=== PATIENT | female | born 1960 | race Caucasian/White ===

== ENCOUNTER 2020-10-17 10:39 | Outpatient (REF) | payer OTHER, SELFPAY ==
[2020-10-17 13:30] LABS: MANUAL DIFF FLAG NO
[2020-10-17 13:35] LABS: Basophils Percent Auto 0.4 % (0-2); Eosinophils Absolute Auto 0.2 X10*3/uL (0.0-0.4); Eosinophils Percent Auto 2.8 % (0-4); Hematocrit 43.8 % (37-47); Hemoglobin 14.1 g/dl (12.0-16.0); Imm Gran Abs Auto 0.03 X10*3/uL (0.00-0.03); Imm Gran Pct Auto 0.4 % (0.0-0.4); Lymphocytes Absolute Auto 1.8 X10*3/uL (1.2-4.9); Lymphocytes Percent Auto 21.2 % (20-40); Mean Corpuscular HGB Conc 32.2 g/dl (31.0-35.0); Mean Corpuscular Hemoglobin 29.9 pg (27.0-33.0); Mean Corpuscular Volume 92.8 fL (80-98); Monocytes Absolute Auto 0.5 X10*3/uL (0.1-1.2); Monocytes Percent Auto 6.1 % (2-11); Neutrophils Absolute Auto 5.9 X10*3/uL (2.0-8.3); Neutrophils Percent Auto 69.1 % (45-73); Platelet Count 235 X10*3/uL (160-400); Red Blood Count 4.72 X10*6/uL (4.20-5.50); Red Cell Distribution Width 12.9 % (11.0-16.0); White Blood Count 8.5 X10*3/uL (4.8-10.8)
[2020-10-17 13:55] LABS: Alanine Aminotransferase 22 U/L (0-31); Albumin Level 4.2 g/dL (3.5-5.0); Alkaline Phosphatase 93 U/L (39-117); Anion Gap 11 (12-20); Aspartate Amino Transferase 25 U/L (5-31); Bilirubin Total 0.4 mg/dL (0.0-1.0); Blood Urea Nitrogen 22 mg/dL (9-16); Calcium 8.6 mg/dL (8.4-10.2); Carbon Dioxide 29 mmol/L (22-29); Chloride 105 mmol/L (96-108); Cholesterol 202 mg/dL; Estimated Glomerular Filt Rate > 60; Glucose Fasting 89 mg/dL (60-99); HDL Cholesterol 75 mg/dL; LDL Cholesterol Calculated 115 mg/dl; Potassium 5.4 mmol/l (3.3-5.1); Sodium 140 mmol/L (135-145); Total Protein 6.6 g/dL (6.5-8.0); Triglycerides 64 mg/dL
[2020-10-17 14:18] LABS: TSH reflex Free T4 1.04 mIU/mL (0.32-4.0)
== END 2020-10-17 10:40 | disposition home or self-care (01) ==
LOC: HO.WFDLDS 10:39
PROVIDERS: Visit Provider Family Medicine
DX: Z12.31 Encounter for screening mammogram for malignant neoplasm of breast (principal)
CPT/HCPCS: 36415; 80053; 80061; 84443; 85025

== ENCOUNTER 2020-11-20 13:45 | Outpatient (REF) | payer OTHER, SELFPAY ==
--- NOTE | 2020-11-20 13:50 | MM_ITS ---
EXAMINATION: BONE DENSITOMETRY CLINICAL INDICATION: Encounter for screening for osteoporosis. COMPARISON: None (current study represents initial baseline exam). TECHNIQUE: Using a [employer] DXA System (software version: 13.1) manufactured by [employer], dual-energy x-ray absorptiometry was performed of the lumbar spine and left hip. The images are of good technical quality. Summary results are attached. FINDINGS: AP SPINE L1-L4: BMD 1.132 g/cm2, Z-score 0.7, T-score -0.4, normal. LEFT FEMUR, NECK: BMD 0.791 g/cm2, Z-score -0.6, T-score -1.8, osteopenia. LEFT FEMUR, TOTAL: BMD 0.903 g/cm2, Z-score 0.0, T-score -0.8, normal. IDENTIFIED RISK FACTORS: Menopause, history of fracture (adult). HISTORY OF FRACTURE: Left rib. MEDICATIONS: Calcium supplements or multivitamin. MM/XR DEXA appendicular skeleton IMPRESSION: 1. DIAGNOSIS: Osteopenia based on the lowest T-score value of -1.8 in the femoral neck applying World Health Organization criteria. 2. 10-YEAR FRACTURE RISK PREDICTION, FRAX: Major osteoporotic fracture (clinical spine, forearm, hip or shoulder) 15.7%. Hip fracture 1.8%. 3. Treatment Recommendations: NOF guidelines recommend consideration for treatment in postmenopausal women and men age 50 and older presenting with the following: -A hip or vertebral (clinical or morphometric) fracture. -T-score less than or equal to -2.5 at the femoral neck or spine after appropriate evaluation to exclude secondary causes. -Low bone mass at the hip or spine and a 10-year fracture probability by FRAX of greater than or equal to 3% for hip fracture or greater than or equal to 20% for major osteoporotic fracture based on the [place] adapted WHO algorithm. 4. Other Recommendations: All treatment decisions require clinical judgment and consideration of individual patient factors, including patient preferences, comorbidities, previous drug use, risk factors not captured in the FRAX model (e.g. frailty, falls, vitamin D deficiency, increased bone turnover, interval significant decline in bone density) and possible under or overestimation of fracture risk by FRAX. Additional medical evaluation for secondary cause of low bone mineral density may be appropriate. FUTURE SCAN RECOMMENDATION: People with diagnosed cases of osteoporosis or at high risk for fracture should have regular bone mineral density tests. For patients eligible for Medicare, routine testing is allowed once every 2 years. The testing frequency can be increased to one year for patients who have rapidly progressing disease, those who are receiving or discontinuing medical therapy to restore bone mass, or have additional risk factors.
== END 2020-11-20 13:46 | disposition home or self-care (01) ==
LOC: HO.MAMMO 13:45
PROVIDERS: PCP Family Medicine; Visit Provider Family Medicine
DX: Z13.820 Encounter for screening for osteoporosis (principal); M85.80 Other specified disorders of bone density and structure, unspecified site
CPT/HCPCS: 77081

== ENCOUNTER 2020-12-08 07:32 | Outpatient (REF) | payer OTHER, SELFPAY ==
--- NOTE | 2020-12-08 07:36 | MM_ITS ---
EXAMINATION: MM SCREENING DIGITAL BREAST TOMOSYNTHESIS, BILATERAL CLINICAL INFORMATION: Screening. Asymptomatic. The lifetime risk of breast cancer based on the Tyrer-Cuzick Model is 9%. COMPARISON: Outside mammography: 02/27/2018, 02/21/2016 ([facility], [place], [place]). TECHNIQUE: Digital breast tomosynthesis is performed in both the craniocaudal and mediolateral oblique views along with computer-aided detection (CAD). Synthesized 2D images are generated from the tomosynthesis. FINDINGS: There are scattered areas of fibroglandular density (ACR BI-RADS breast composition Category b). There are no significant masses, abnormal calcifications, or other abnormalities. No significant changes from prior outside exams. MM/MM tomosynthesis screening BI IMPRESSION: No mammographic evidence of malignancy. ASSESSMENT: BI-RADS 1: Negative RECOMMENDATION: Routine annual mammography screening. This patient's information was entered into a reminder system with a target due date for their next mammogram.
== END 2020-12-08 07:33 | disposition home or self-care (01) ==
LOC: HO.MAMMO 07:32
PROVIDERS: PCP Family Medicine; Visit Provider Family Medicine
DX: Z12.31 Encounter for screening mammogram for malignant neoplasm of breast (principal)
CPT/HCPCS: 77063; 77067

== ENCOUNTER → 2020-12-27 10:21 | Outpatient (BNVA) | payer OTHER, SELFPAY | PROVIDERS: PCP Family Medicine; Visit Provider Nurse Practitioner | DX: Z76.89 Persons encountering health services in other specified circumstances (principal) ==

== ENCOUNTER 2021-02-14 12:26 | Outpatient (REF) | payer OTHER, SELFPAY ==
[2021-02-14 13:25] LABS: MANUAL DIFF FLAG NO
[2021-02-14 13:27] LABS: Basophils Percent Auto 0.4 % (0-2); Eosinophils Absolute Auto 0.2 X10*3/uL (0.0-0.4); Hematocrit 44.2 % (37-47); Hemoglobin 14.2 g/dl (12.0-16.0); Imm Gran Abs Auto 0.03 X10*3/uL (0.00-0.03); Imm Gran Pct Auto 0.6 % (0.0-0.4); Lymphocytes Absolute Auto 1.5 X10*3/uL (1.2-4.9); Lymphocytes Percent Auto 27.2 % (20-40); Mean Corpuscular HGB Conc 32.1 g/dl (31.0-35.0); Mean Corpuscular Hemoglobin 28.2 pg (27.0-33.0); Mean Corpuscular Volume 87.7 fL (80-98); Mean Platelet Volume 10.1 fL (9.4-12.3); Monocytes Absolute Auto 0.4 X10*3/uL (0.1-1.2); Monocytes Percent Auto 7.4 % (2-11); Neutrophils Absolute Auto 3.3 X10*3/uL (2.0-8.3); Neutrophils Percent Auto 60.4 % (45-73); Platelet Count 225 X10*3/uL (160-400); Red Blood Count 5.04 X10*6/uL (4.20-5.50); Red Cell Distribution Width 14.2 % (11.0-16.0); White Blood Count 5.4 X10*3/uL (4.8-10.8)
[2021-02-14 14:24] LABS: Alanine Aminotransferase 18 U/L (0-31); Albumin Level 4.4 g/dL (3.5-5.0); Alkaline Phosphatase 94 U/L (39-117); Anion Gap 12 (12-20); Aspartate Amino Transferase 19 U/L (5-31); Bilirubin Total 0.6 mg/dL (0.0-1.0); Blood Urea Nitrogen 17 mg/dL (9-16); Carbon Dioxide 29 mmol/L (22-29); Chloride 105 mmol/L (96-108); Estimated Glomerular Filt Rate > 60; Glucose Random 82 mg/dL (60-115); Potassium 4.5 mmol/L (3.3-5.1); Sodium 141 mmol/L (135-145); Total Protein 6.9 g/dL (6.5-8.0)
[2021-02-14 14:31] LABS: TSH reflex Free T4 1.21 uIU/mL (0.32-4.0)
== END 2021-02-14 12:27 | disposition home or self-care (01) ==
LOC: HO.WFDLDS 12:26
PROVIDERS: Visit Provider Family Medicine
DX: Z00.00 Encounter for general adult medical examination without abnormal findings (principal); R53.83 Other fatigue
CPT/HCPCS: 36415; 80053; 84443; 85025

== ENCOUNTER → 2021-06-19 08:37 | Outpatient (BNVA) | payer OTHER, SELFPAY | PROVIDERS: PCP Family Medicine; Visit Provider Nurse Practitioner ==

== ENCOUNTER → 2021-09-17 08:31 | Outpatient (BNVA) | payer OTHER, SELFPAY | PROVIDERS: PCP Family Medicine; Visit Provider Nurse Practitioner ==

== ENCOUNTER 2022-03-11 07:52 | Outpatient (REF) | payer OTHER, SELFPAY ==
[2022-03-11 11:07] LABS: MANUAL DIFF FLAG NO
[2022-03-11 11:27] LABS: Basophils Percent Auto 0.4 % (0-2); Eosinophils Absolute Auto 0.2 X10*3/uL (0.0-0.4); Hematocrit 44.6 % (37.0-47.0); Hemoglobin 14.3 g/dl (12.0-16.0); Imm Gran Abs Auto 0.02 X10*3/uL (0.00-0.03); Imm Gran Pct Auto 0.4 % (0.0-0.4); Lymphocytes Absolute Auto 2.5 X10*3/uL (1.2-4.9); Lymphocytes Percent Auto 49.4 % (20-40); Mean Corpuscular HGB Conc 32.1 g/dl (31.0-35.0); Mean Corpuscular Hemoglobin 28.5 pg (27.0-33.0); Mean Corpuscular Volume 88.8 fL (80.0-98.0); Mean Platelet Volume 9.8 fL (9.4-12.3); Monocytes Absolute Auto 0.4 X10*3/uL (0.1-1.2); Monocytes Percent Auto 7.9 % (2-11); Neutrophils Absolute Auto 1.9 x10*3/uL (2.0-8.3); Neutrophils Percent Auto 37.9 % (45-73); Platelet Count 194 X10*3/uL (160-400); Red Blood Count 5.02 X10*6/uL (4.20-5.50); Red Cell Distribution Width 13.4 % (11.0-16.0); White Blood Count 5.1 X10*3/uL (4.8-10.8)
[2022-03-11 11:47] LABS: Alanine Aminotransferase 34 U/L (0-31); Albumin Level 4.1 g/dL (3.5-5.0); Alkaline Phosphatase 92 U/L (39-117); Anion Gap 12 (12-20); Aspartate Amino Transferase 26 U/L (5-31); Bilirubin Total 0.4 mg/dL (0.0-1.0); Blood Urea Nitrogen 17 mg/dL (9-16); Calcium 9.6 mg/dL (8.4-10.2); Carbon Dioxide 29 mmol/L (22-29); Chloride 106 mmol/L (96-108); Estimated Glomerular Filt Rate 60; Glucose Fasting 93 mg/dL (60-99); Potassium 4.3 mmol/L (3.3-5.1); Sodium 143 mmol/L (135-145); Total Protein 6.7 g/dL (6.5-8.0)
[2022-03-11 11:52] LABS: TSH reflex Free T4 2.95 uIU/mL (0.32-4.0); Vitamin D 25-OH Total 21.3 ng/mL (>30)
[2022-03-11 12:16] LABS: Folate 6.7 ng/mL (> or = 4.0); Vitamin B12 371 pg/mL (200-900)
[2022-03-11 14:01] LABS: Appearance Urine CLEAR; Color Urine YELLOW; Glucose Urine UA NEG (NEG); Leukocyte Esterase Urine NEG (NEG); Nitrite Urine NEG (NEG); PH 5.5 (5.0-8.0); Specific Gravity - Urine <= 1.005 (1.005-1.025); Urine Blood NEG (NEG); Urine Ketones NEG (NEG); Urine Protein NEG (NEG-TRACE)
== END 2022-03-11 07:53 | disposition home or self-care (01) ==
LOC: HO.WFDLDS 07:52
PROVIDERS: Visit Provider Family Medicine
DX: Z00.00 Encounter for general adult medical examination without abnormal findings (principal); K21.00 Gastro-esophageal reflux disease with esophagitis, without bleeding; M85.80 Other specified disorders of bone density and structure, unspecified site; E55.9 Vitamin D deficiency, unspecified; E53.8 Deficiency of other specified B group vitamins; Z87.19 Personal history of other diseases of the digestive system
CPT/HCPCS: 36415; 80053; 81003; 82306; 82607; 82746; 84443; 85025

== ENCOUNTER 2022-03-19 14:39 | Outpatient (REF) | payer OTHER, SELFPAY ==
--- NOTE | ~2022-03-19 | MM_ITS ---
EXAMINATION: MM SCREENING DIGITAL BREAST TOMOSYNTHESIS, BILATERAL CLINICAL INFORMATION: Screening. Asymptomatic. The lifetime risk of breast cancer based on the Tyrer-Cuzick Model is 12%. COMPARISON: Mammography: 12/08/2020; outside mammography 02/27/2018 and 02/26/2017 ([facility], [place], [place]). TECHNIQUE: Digital breast tomosynthesis is performed in both the craniocaudal and mediolateral oblique views along with computer-aided detection (CAD). Synthesized 2D images are generated from the tomosynthesis. FINDINGS: There are scattered areas of fibroglandular density (ACR BI-RADS breast composition Category b). Parenchymal pattern is similar to prior studies. No developing density or architectural abnormality. There are no significant masses, abnormal calcifications, or other abnormalities. Skin contours are smooth. MM/MM tomosynthesis screening BI IMPRESSION: No mammographic evidence of malignancy. ASSESSMENT: BI-RADS 1: Negative RECOMMENDATION: Routine annual mammography screening. This patient's information was entered into a reminder system with a target due date for their next mammogram.
== END 2022-03-19 14:40 | disposition home or self-care (01) ==
LOC: HO.MAMMO 14:39
PROVIDERS: PCP Family Medicine; Visit Provider Family Medicine
DX: Z12.31 Encounter for screening mammogram for malignant neoplasm of breast (principal)
CPT/HCPCS: 77063; 77067

== ENCOUNTER 2022-05-21 15:01 | Outpatient (REF) | payer OTHER, SELFPAY ==
[2022-05-21 18:48] LABS: CT PCR NOT DETECTED (Not Detect.); NG PCR NOT DETECTED (Not Detect.)
[2022-05-22 09:16] LABS: BV Int Neg Control Negative (Negative); BV Int Pos Control Positive (Positive)
[2022-05-24 09:27] LABS: HPV mRNA E6/E7 rflx Not Detected (Not Detected)
== END 2022-05-21 15:02 | disposition home or self-care (01) ==
LOC: HO.LAB 15:01
PROVIDERS: Visit Provider Advanced Practice Midwife
DX: Z01.419 Encounter for gynecological examination (general) (routine) without abnormal findings (principal); N89.8 Other specified noninflammatory disorders of vagina; Z11.3 Encounter for screening for infections with a predominantly sexual mode of transmission; Z11.51 Encounter for screening for human papillomavirus (HPV); Z11.8 Encounter for screening for other infectious and parasitic diseases
CPT/HCPCS: 87480; 87491; 87510; 87591; 87624; 87660; 88142

== ENCOUNTER 2022-05-22 14:55 | Outpatient (REF) | payer OTHER, SELFPAY ==
[2022-05-23 11:43] LABS: Influenza A PCR NEGATIVE (Negative); Influenza B PCR NEGATIVE (Negative); Resp Syncy Virus RNA Qual PCR NEGATIVE (Negative); SARS COV2 PCR INHOUSE POSITIVE (Negative)
== END 2022-05-22 14:56 | disposition home or self-care (01) ==
LOC: HO.LNP 14:55
PROVIDERS: Visit Provider Family Medicine
DX: Z20.822 Contact with and (suspected) exposure to COVID-19 (principal); B34.9 Viral infection, unspecified
CPT/HCPCS: 0241U

== ENCOUNTER 2022-08-14 12:36 | Outpatient (REF) | payer OTHER, SELFPAY ==
[2022-08-14 13:35] LABS: MANUAL DIFF FLAG NO
[2022-08-14 13:39] LABS: Eosinophils Absolute Auto 0.1 X10*3/uL (0.0-0.4); Eosinophils Percent Auto 2.4 % (0-4); Hematocrit 43.7 % (37.0-47.0); Imm Gran Abs Auto 0.01 X10*3/uL (0.00-0.03); Imm Gran Pct Auto 0.2 % (0.0-0.4); Lymphocytes Absolute Auto 1.5 X10*3/uL (1.2-4.9); Lymphocytes Percent Auto 37.4 % (20-40); Mean Corpuscular Hemoglobin 27.6 pg (27.0-33.0); Mean Platelet Volume 9.8 fL (9.4-12.3); Monocytes Absolute Auto 0.4 X10*3/uL (0.1-1.2); Monocytes Percent Auto 9.2 % (2-11); Neutrophils Absolute Auto 2.1 x10*3/uL (2.0-8.3); Neutrophils Percent Auto 49.8 % (45-73); Platelet Count 214 X10*3/uL (160-400); Red Blood Count 5.08 X10*6/uL (4.20-5.50); Red Cell Distribution Width 14.2 % (11.0-16.0); White Blood Count 4.1 X10*3/uL (4.8-10.8)
[2022-08-14 15:05] LABS: Alanine Aminotransferase 13 U/L (0-31); Albumin Level 4.2 g/dL (3.5-5.0); Alkaline Phosphatase 81 U/L (39-117); Anion Gap 13 (12-20); Aspartate Amino Transferase 15 U/L (5-31); Bilirubin Total 0.3 mg/dL (0.0-1.0); Blood Urea Nitrogen 8 mg/dL (9-16); Calcium 9.1 mg/dL (8.4-10.2); Carbon Dioxide 28 mmol/L (22-29); Chloride 106 mmol/L (96-108); Cholesterol 207 mg/dL; Estimated Glomerular Filt Rate > 60; Glucose Random 88 mg/dL (60-115); HDL Cholesterol 47 mg/dL; LDL Cholesterol Calculated 139 mg/dl; Potassium 3.9 mmol/L (3.3-5.1); Sodium 143 mmol/L (135-145); Total Protein 6.6 g/dL (6.5-8.0); Triglycerides 109 mg/dL
[2022-08-14 15:18] LABS: TSH reflex Free T4 0.94 uIU/mL (0.32-4.0); Vitamin D 25-OH Total 41.3 ng/mL (>30)
[2022-08-16 05:42] LABS: LDL Cholesterol Direct 127 mg/dL (<100)
== END 2022-08-14 12:37 | disposition home or self-care (01) ==
LOC: HO.WFDLDS 12:36
PROVIDERS: Visit Provider Family Medicine
DX: Z00.00 Encounter for general adult medical examination without abnormal findings (principal); F32.9 Major depressive disorder, single episode, unspecified; E55.9 Vitamin D deficiency, unspecified
CPT/HCPCS: 36415; 80053; 80061; 82306; 83721; 84443; 85025

== ENCOUNTER → 2023-02-21 11:15 | Outpatient (BNVA) | payer OTHER, SELFPAY | PROVIDERS: PCP Family Medicine; Visit Provider Nurse Practitioner | DX: Z13.89 Encounter for screening for other disorder (principal) ==

== ENCOUNTER 2023-03-12 10:19 | Outpatient (REF) | payer OTHER, SELFPAY ==
[2023-03-12 14:05] LABS: MANUAL DIFF FLAG NO
[2023-03-12 14:25] LABS: Basophils Percent Auto 0.4 % (0-2); Eosinophils Absolute Auto 0.1 X10*3/uL (0.0-0.4); Eosinophils Percent Auto 2.2 % (0-4); Hematocrit 45.7 % (37.0-47.0); Hemoglobin 14.8 g/dl (12.0-16.0); Imm Gran Abs Auto 0.05 X10*3/uL (0.00-0.03); Lymphocytes Percent Auto 39.3 % (20-40); Mean Corpuscular HGB Conc 32.4 g/dl (31.0-35.0); Mean Corpuscular Hemoglobin 27.8 pg (27.0-33.0); Mean Corpuscular Volume 85.7 fL (80.0-98.0); Mean Platelet Volume 10.2 fL (9.4-12.3); Monocytes Absolute Auto 0.4 X10*3/uL (0.1-1.2); Monocytes Percent Auto 8.4 % (2-11); Neutrophils Absolute Auto 2.4 x10*3/uL (2.0-8.3); Neutrophils Percent Auto 48.7 % (45-73); Platelet Count 242 X10*3/uL (160-400); Red Blood Count 5.33 X10*6/uL (4.20-5.50); Red Cell Distribution Width 14.5 % (11.0-16.0)
[2023-03-12 15:11] LABS: Alanine Aminotransferase 15 U/L (0-31); Albumin Level 4.2 g/dL (3.5-5.0); Alkaline Phosphatase 89 U/L (39-117); Anion Gap 11 (12-20); Aspartate Amino Transferase 16 U/L (5-31); Bilirubin Total 0.5 mg/dL (0.0-1.0); Blood Urea Nitrogen 17 mg/dL (9-16); Calcium 9.1 mg/dL (8.4-10.2); Carbon Dioxide 27 mmol/L (22-29); Chloride 109 mmol/L (96-108); Cholesterol 219 mg/dL; Estimated Glomerular Filt Rate > 60; Glucose Fasting 94 mg/dL (60-99); HDL Cholesterol 56 mg/dL; LDL Cholesterol Calculated 146 mg/dl; Potassium 4.2 mmol/L (3.3-5.1); Sodium 143 mmol/L (135-145); Total Protein 6.5 g/dL (6.5-8.0); Triglycerides 86 mg/dL
[2023-03-12 15:29] LABS: TSH reflex Free T4 1.52 uIU/mL (0.32-4.0)
== END 2023-03-12 10:20 | disposition home or self-care (01) ==
LOC: HO.WFDLDS 10:19
PROVIDERS: Visit Provider Family Medicine
DX: Z00.00 Encounter for general adult medical examination without abnormal findings (principal)
CPT/HCPCS: 36415; 80053; 80061; 84443; 85025

== ENCOUNTER 2023-03-25 14:09 | Outpatient (REF) | payer OTHER, SELFPAY ==
--- NOTE | ~2023-03-25 | MM_ITS ---
EXAMINATION: MM SCREENING DIGITAL BREAST TOMOSYNTHESIS, BILATERAL CLINICAL INFORMATION: Screening. Asymptomatic. Excisional biopsy with benign results breast. COMPARISON: Mammography: March 19, 2022 and studies dating back to February 21, 2016 The lifetime risk of breast cancer based on the Tyrer-Cuzick Model is 8.2%. TECHNIQUE: Digital breast tomosynthesis is performed in both the craniocaudal and mediolateral oblique views along with computer-aided detection (CAD). Synthesized 2D images are generated from the tomosynthesis. FINDINGS: There are scattered areas of fibroglandular density (ACR BI-RADS breast composition Category b). There are no significant masses, abnormal calcifications, or other abnormalities. MM/MM tomosynthesis screening BI IMPRESSION: No significant changes ASSESSMENT: BI-RADS 1: Negative RECOMMENDATION: Routine annual mammography screening. This patient's information was entered into a reminder system with a target due date for their next mammogram.
== END 2023-03-25 14:10 | disposition home or self-care (01) ==
LOC: HO.MAMMO 14:09
PROVIDERS: PCP Family Medicine; Visit Provider Family Medicine
DX: Z12.31 Encounter for screening mammogram for malignant neoplasm of breast (principal)
CPT/HCPCS: 77063; 77067

== ENCOUNTER 2023-06-11 08:54 | Outpatient (REF) | payer OTHER, SELFPAY ==
[2023-06-11 12:06] LABS: Erythrocyte Sedimentation Rate 4 MM/HR (0-20)
[2023-06-11 12:23] LABS: Alanine Aminotransferase 13 U/L (0-31); Albumin Level 4.1 g/dL (3.5-5.0); Alkaline Phosphatase 78 U/L (39-117); Anion Gap 14 (12-20); Aspartate Amino Transferase 16 U/L (5-31); Bilirubin Total 0.6 mg/dL (0.0-1.0); Blood Urea Nitrogen 9 mg/dL (9-16); Calcium 9.7 mg/dL (8.4-10.2); Carbon Dioxide 27 mmol/L (22-29); Chloride 105 mmol/L (96-108); Estimated Glomerular Filt Rate 58; Glucose Random 93 mg/dL (60-115); Iron 96 mcg/dL (30-160); Percent Iron Saturation 31 % (15-50); Potassium 4.2 mmol/L (3.3-5.1); Sodium 142 mmol/L (135-145); Total Iron Binding Capacity 305 mcg/dL (228-428); Total Protein 6.8 g/dL (6.5-8.0); Unsaturated Iron Binding 209 ug/dL
[2023-06-11 12:51] LABS: Rheumatoid Factor < 13.0 IU/mL (<15.0)
[2023-06-11 12:56] LABS: Folate 8.2 ng/mL (> or = 4.0); Vitamin B12 > 2000 pg/mL (200-900)
[2023-06-16 15:54] LABS: CRP High Sensitivity 0.5 mg/L
== END 2023-06-11 08:55 | disposition home or self-care (01) ==
LOC: HO.WFDLDS 08:54
PROVIDERS: Visit Provider Family Medicine
DX: K11.7 Disturbances of salivary secretion (principal); E53.8 Deficiency of other specified B group vitamins
CPT/HCPCS: 36415; 80053; 82607; 82746; 83540; 85652; 86141; 86431

== ENCOUNTER 2023-06-12 11:19 | Outpatient (AMB) | payer OTHER, SELFPAY ==
[2023-06-12 11:41] VITALS: BP 122/72; PULSE 91; O2SAT 97; BMI 28.4
--- NOTE | 2023-06-12 11:41 | A.OFFPC_ITS ---
Vital Signs 06/12/23 11:41 Height 5 ft 6 in Weight 176 lb BMI 28.4 BP 122/72 Blood Pressure Location Lt brachial Position Sitting Pulse 91 Pulse Source Pulse Oximeter Pulse Oximetry (%) 97 Oxygen Delivery Method Room Air Intake Visit Reasons: Follow-up anxiety Intake Note: Patient is here for follow up on anxiety, and would like to discuss some appointments. Allergies No Known Allergies Allergy (Verified 06/12/23 11:44) Tobacco use date assessed: 06/12/23 Dental Screening Dental Screen Date: 06/12/23 Did you have a dental visit in the last 12 months?: Yes Did you have a dental problem in the last 6 months where you did not have access to dental care?: No Was dental information given to patient?: No HPI Follow-up anxiety HPI Details 62 y/o female presents to f/u anxiety. She is on lorazepam 1mg t.i.d., lamotrigine 50mg b.i.d., benztropine 0.5mg b.i.d. and hydroxyzine 50mg p.r.n. She states she has good family support. She continues to take pantoprazole 40mg b.i.d. She reports tongue has improved with her mouth wash but is still having issues. She has a hx of GERD. 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) Current occupational exposures/hazards: No Cognitive needs: No Hearing needs: No Vision needs: Yes (glasses) Questionnaire Thrive Questionnaire Date Thrive assessed: 09/17/21 RENETTA-7 AMB Questionnaire RENETTA-7 Date RENETTA - 7 assessed: 06/12/23 Feeling nervous, anxious, or on edge: 0 = Not at all Not being able to stop or control worryin = Not at all Worrying too much about different things: 0 = Not at all Trouble relaxin = Several days Being so restless that it is hard to sit still: 0 = Not at all Becoming easily annoyed or irritable: 1 = Several days Feeling afraid as if something awful might happen: 0 = Not at all Total RENETTA-7 score (0-4 normal; 5-9 mild; 10-14 moderate; 15-21 severe): 2 Source: Developed by Drs. Kevin Zarate, Massiel Lizama, Gee Veronica and colleagues, with an educational ember from [employer]. Physical exam (Primary Care) Vital Signs: Last Vital Signs Pulse 91 06/12/23 11:41 BP 122/72 06/12/23 11:41 Pulse Ox 97 06/12/23 11:41 Oxygen Delivery Method Room Air 06/12/23 11:41 BMI result Body Mass Index 28.4 Tobacco/Smoking Status: Tobacco use Status Tobacco use date assessed 06/12/23 06/12/23 11:52 Patient Tobacco Use Status Never used Tobacco 06/12/23 11:43 e-Cigarette/Vaping Use Never Used 06/12/23 11:43 Thrive Assessment: Date of Thrive Assessment Date Thrive assessed 09/17/21 06/12/23 11:43 Assessment and Plan Assessment & Plan (1) Anxiety with depression: Code(s): F41.8 - Other specified anxiety disorders Plan: Acute adjustment disorder on top of bipolar disorder with anxiety and depression; patient's mother just recently . She seems fairly stable considering this at new situation. She has a therapist and a psych med provider and feels that she can speak to her therapist as well as family supports. She notes that she has a very strong family relationship with her sisters. No medication changes today (2) Difficulty swallowing: Code(s): R13.10 - Dysphagia, unspecified Plan: Some difficulty swallowing. At prior visit she appeared to have aphthous ulcers and potential thrush Had given her a miracle mouthwash. She says this helped considerably but that it may not have been for a long enough period of time. Will repeat this medication However, I think some of her symptoms are secondary to GERD and she is followed for GERD and history of Velázquez's esophagus by Heather Jack. Follow-up with Heather Jack at upcoming appointment but call for sooner appointment if symptoms are worsening (3) Aphthous ulcer of tongue: Code(s): K12.0 - Recurrent oral aphthae Plan: This appears resolved (4) GERD with esophagitis: Code(s): K21.00 - Gastro-esophageal reflux disease with esophagitis, without bleeding Plan: As above, follow-up with GI Continue pantoprazole Avoid triggers Medications: Refilled Miracle Mouthwash-Flores Nystatin susp 80 mL;Lidocaine 2% Visc 80 mL; Maalox 80 mL; Swish and spit 5 mL PO BID 10 days 240 mL 0RF pantoprazole 40 mg PO BID 60 tabs 6RF K21.00 - Gastro-esophageal reflux disease with esophagitis, without bleeding, Z87.19 - Personal history of other diseases of the digestive system Coding Level of Care Code Est Pt Level 4 (88136) Diagnoses Anxiety with depression F41.8 Difficulty swallowing R13.10 Aphthous ulcer of tongue K12.0 GERD with esophagitis K21.00
== END 2023-06-12 13:13 | disposition home or self-care (01) ==
PROVIDERS: Visit Provider Family Medicine
DX: F41.8 Other specified anxiety disorders (principal); R13.10 Dysphagia, unspecified; K12.0 Recurrent oral aphthae; K21.00 Gastro-esophageal reflux disease with esophagitis, without bleeding
CPT/HCPCS: 99214

== ENCOUNTER 2023-08-14 10:44 | Outpatient (AMB) | payer OTHER, SELFPAY ==
[2023-08-14 10:47] VITALS: BP 126/74; PULSE 93; RESP 12; TEMP 36.3; O2SAT 98; BMI 28.9
--- NOTE | 2023-08-14 10:47 | A.OFFPC_ITS ---
Vital Signs 08/14/23 10:47 Height 5 ft 6 in Weight 179 lb 4 oz BMI 28.9 BP 126/74 Blood Pressure Location Lt brachial Position Sitting Respiration 12 Pulse 93 Pulse Source Pulse Oximeter Temp 97.3 F Temp Source Temporal Artery Scan Pulse Oximetry (%) 98 Oxygen Delivery Method Room Air Intake Visit Reasons: f/u anxiety/depression and chronic conditions Spreading Machine Operator Required: No Accompanied by: Self / Same As Patient Allergies No Known Allergies Allergy (Verified 08/14/23 10:56) Medication List - Last Reconciled 08/14/23 by Nelson Walsh MD benztropine 0.5 mg PO BEDTIME Bifidobacterium infantis (Align) 4 mg PO DAILY 30 days bisacodyl 5 mg PO BEDTIME diclofenac sodium 1% 4 grams topical QID 14 days docusate sodium 100 mg PO BID famotidine 40 mg PO BEDTIME 30 days hydroxyzine pamoate 50 mg PO BID PRN ibuprofen 400 mg (2 x 200 mg) PO Q8H 30 days lamotrigine 50 mg PO BID lorazepam 1 mg PO TID mecobalamin (vitamin B12) 1,000 mcg sublingual DAILY 30 days Miracle Mouthwash-Flores 5 mL PO BID 10 days pantoprazole 40 mg PO BID perphenazine 4 mg PO DAILY polyethylene glycol 3350 17 grams PO DAILY Tobacco use date assessed: 06/12/23 Fall risk assessment: No Falls in past year Last assessed Fall Risk: 08/14/23 Dental Screening Dental Screen Date: 08/14/23 Did you have a dental visit in the last 12 months?: Yes Did you have a dental problem in the last 6 months where you did not have access to dental care?: No Was dental information given to patient?: Patient has dentist HPI f/u anxiety/depression and chronic conditions HPI Details 63 y/o female presents to f/u anxiety/de pression and chronic conditions. She is on lorazepam 1mg t.i.d., lamotrigine 50mg b.i.d.. and hydroxyzine 50mg p.r.n. She is also on benztropine 0.5mg. Pt scores negative for anxiety/depression today though she reports she has things she would rather not talk about. While discussing the of her mother pt had difficulty holding back tears. She reports she no longer has a therapist. [facility] Medical History Squamous cell carcinoma of skin of right calf Surgical History H/O esophagogastroduodenoscopy H/O colonoscopy History of lumpectomy of left breast Family History Mother Uterine cancer Stented coronary artery Sister Melanoma Social History Household Members: Children [facility]: 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 1. Little interest or pleasure in doing things: not at all 2. Feeling down, depressed, or hopeless: not at all 3. Trouble falling or staying asleep, or sleeping too much: not at all 4. Feeling tired or having little energy: not at all 5. Poor appetite or overeating: not at all 6. Feeling bad about yourself - or that you are a failure or have let yourself or your family down: not at all 7. Trouble concentrating on things, such as reading the newspaper or watching television: not at all 8. Moving or speaking so slowly that other people could have noticed. Or the opposite - being so fidgety or restless that you have been moving around a lot more than usual: not at all 9. Thoughts that you would be better off or of hurting yourself in some way: not at all Total score: 0 Depression Screening Interpretation: Negative Source: Developed by Drs. Kevin Zarate, Massiel Lizama, Gee Veronica and colleagues, with an educational ember from [email or web address]. Thrive Questionnaire Date Thrive assessed: 09/17/21 RENETTA-7 AMB Questionnaire RENETTA-7 Date RENETTA - 7 assessed: 06/12/23 Feeling nervous, anxious, or on edge: 0 = Not at all Not being able to stop or control worryin = Not at all Worrying too much about different things: 0 = Not at all Trouble relaxin = Not at all Being so restless that it is hard to sit still: 0 = Not at all Becoming easily annoyed or irritable: 0 = Not at all Feeling afraid as if something awful might happen: 0 = Not at all Total RENETTA-7 score (0-4 normal; 5-9 mild; 10-14 moderate; 15-21 severe): 0 Source: Developed by Drs. Kevin Zarate, Massiel Lizama, Gee Veronica and colleagues, with an educational ember from [email or web address]. RENETTA-7 Assessment Billing RENETTA-7 Assessment Tool: RENETTA-7 Assessment 47818 Review of Systems Psych Reports anxiety and Reports depression Physical exam (Primary Care) Vital Signs: Last Vital Signs Temp 97.3 F 08/14/23 10:47 Pulse 93 08/14/23 10:47 Resp 12 08/14/23 10:47 BP 126/74 08/14/23 10:47 Pulse Ox 98 08/14/23 10:47 Oxygen Delivery Method Room Air 08/14/23 10:47 BMI result Body Mass Index 28.9 Tobacco/Smoking Status: Tobacco use Status Tobacco use date assessed 06/12/23 08/14/23 10:47 Patient Tobacco Use Status Never used Tobacco 08/14/23 10:47 e-Cigarette/Vaping Use Never Used 08/14/23 10:47 PHQ-9: PHQ-9 Score PHQ-9: Total score 0 08/14/23 11:39 Depression Screening Interpretation: Negative Thrive Assessment: Date of Thrive Assessment Date Thrive assessed 09/17/21 08/14/23 10:47 Assessment and Plan Assessment & Plan (1) Anxiety with depression: Code(s): F41.8 - Other specified anxiety disorders Plan: Patient with history of bipolar disorder and severe anxiety and depression. Recent of her mother and while discussing this, patient has difficulty holding back tears and says I can not talk about that . PHQ-9 and renetta 7 were scored negative and I discussed this with her; these clearly do not reflect her actual mood and she acknowledges that although she looks on the bright side as much as she can and this is a good coping strategy, she has many emotions that she does not feel she can convey or talk about. She has a psychiatrist who manages her medications and she seems fairly stable on these. She has a bilingual social worker. However, she had a therapist and the [facility] has told her they are ?cutting back? and I strongly disagree with this action with regards to Laurie. She does not advocate for herself well and may except that they are cutting back and discontinuing her care but she has significant anxiety and depression nevertheless. Spoke to the nurse navigator today with the above and I have requested that he advocate for her to continue therapy. No medication changes Continue with psychiatrist and bilingual social worker Strongly advise she continue with therapist (2) Bipolar disorder: Code(s): F31.9 - Bipolar disorder, unspecified Plan: Continue with psychiatrist and continue current medication regimen Coding Level of Care Code Est Pt Level 3 (07754) Diagnoses Anxiety with depression F41.8 Bipolar disorder F31.9 Additional Codes RENETTA-7 Assessment Billing - RENETTA-7 Assessment Tool: RENETTA-7 Assessment [id number] ([id number])
== END 2023-08-14 12:08 | disposition home or self-care (01) ==
PROVIDERS: PCP Family Medicine; Visit Provider Family Medicine
DX: F41.8 Other specified anxiety disorders (principal); F31.9 Bipolar disorder, unspecified
CPT/HCPCS: 99213

== ENCOUNTER 2023-08-15 11:28 | Outpatient (AMB) | payer OTHER, SELFPAY ==
--- NOTE | 2023-08-15 11:29 | MHC.OFFVIS ---
Intake Vital Signs 08/15/23 11:31 Height 5 ft 6 in Weight 178 lb 9.191 oz BMI 28.8 BP 115/71 Blood Pressure Location Lt brachial Position Sitting Pulse 95 Intake Visit Reasons: 6month f/u Intake Note: Patient presents to in office visit today in 6 months in follow up. CC: Patient reports she is doing well and she is trying to eat well and taking Protonix and Famotidine. She reports medications are working well to manage symptoms. She reports she gets laryngitis once in a while . 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 She feels her GERD is well controlled on the protonix bid, but we will continue famotidine qhs until we can survey the SSBE. She feels that the Miralax is moving her bowels well with the colace bid, and they have bisacodyl prn for this in her respite. She is still very emotional regarding a problem when she woke up and could not speak with a past EGD. This happened a different facility and she has been resistant to having his request the records to find out what sedation she might have reacted poorly to. However, she is agreeable to getting the procedure scheduled since we are >8 mos out for this. She was worried that she would miss her sons graduation in March. Again, she had a problem waking up from anesthesia in the past of unknown type after procedure not being able to speak which triggered her PTSD. There are no cardiac or respiratory problems. There are no infectious disease problems. Again she has a history of Velázquez's esophagus but has not been surveyed in at least 5 years. RoV 6 mos. (2) History of Velázquez's esophagus: Code(s): Z87.19 - Personal history of other diseases of the digestive system (3) Constipation: Code(s): K59.00 - Constipation, unspecified Medications: New docusate sodium 100 mg PO BID 60 caps 6RF Refilled pantoprazole 40 mg PO BID 60 t abs 6RF K21.00 - Gastro-es ophageal reflux di sease with esophag itis, without blee xander, Z87.19 - Per mona history of o ther diseases of t he digestive syste m famotidine 40 mg PO BEDTIME 30 days 30 tabs 3R F polyethylene glyco l 3350 17 grams PO DAILY 238 grams 6RF EGD Not scheduled or obtained?? BIOPSY Laboratory Tests 03/12/23 06/11/23 06/11/23 10:25 09:08 09:08 Estimated GFR 58 Total Bilirubin 0.6 AST 16 ALT 13 Alkaline Phosphata se 78 TSH 1.52 ROV TODAY'S VISIT She never heard to schedule the EGD. She is having troubles with recurrent sore throats and hoarse voice. She does not feel this is her GERD, but sinus problems. She has not had survey for SSBE for many years. Her mother 2 mos ago, this was hard for her. She is associated with [facility] and has an apt with them, she brings a med list for me to update, but they left off lamictal. She wanted Cologuard for CRC screening, this was supposed to be discussed wtih her PCP, but I will try ordering it since she saw him yesterday and it was not addressed. She has no hx of polyps or FHX of CRC. There are no cardiac or respiratory problems. There are no infectious disease problems. Again she has a history of Velázquez's esophagus but has not been surveyed in at least 5 years. ROV 6 mos. 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) Current occupational exposures/hazards: No Cognitive needs: No Hearing needs: No Vision needs: Yes (glasses) Review of Systems Const Denies fatigue, Denies fever(s), Denies night sweats, Denies poor appetite and Denies weight loss Eyes Details: glasses Reports requires corrective lenses ENT Reports Normal hearing present, Denies dental pain, Denies dysphagia, Denies hearing loss, Denies mouth pain, Denies odynophagia, Reports post nasal drip, Reports sinus pressure, Reports sore throat, Denies throat swelling, Denies tongue swelling and Reports other (Dentition adequate) Card Reports no additional complaints Resp Reports no additional complaints GI Denies abdominal pain, Denies melena, Denies bloating, Denies hematochezia, Reports constipation, Denies GI cramping, Denies dysphagia, Denies excessive flatus, Denies early satiety, Reports heartburn, Denies diarrhea, Denies nausea, Denies odynophagia, Denies vomiting and Denies hematemesis Skin/Breast Denies pruritus, Denies lesions, Denies rash and Denies jaundice Neuro Reports Normal hearing present and Denies Abnormal speech present Psych Reports anxiety and Reports depression Endo Denies fatigue Aller/Immun Denies throat swelling and Denies tongue swelling Physical Exam Vital Signs: Last Vital Signs Pulse 95 08/15/23 11:31 BP 115/71 08/15/23 11:31 BMI result Body Mass Index 28.8 Const General: cooperative, no acute distress, well developed and well groomed Nutritional Appearance: average body habitus and well nourished Orientation/consciousness: oriented to person, oriented to place and oriented to time Limitations: No language barrier HEENT Head: Yes normocephalic and Yes atraumatic Eyes General: appearance normal, both eyes and all related structures Pupils: Equal, round and reactive pupils present Neck Neck: Yes normal visual inspection and Yes no lymphadenopathy Thyroid: Thyroid normal Resp Effort & Inspection: normal respiratory effort and able to speak in complete sentences Auscultation: clear to auscultation bilaterally Cardio Rate: regular rate Rhythm: regular rhythm Heart sounds: Normal, physiologic split S2 sound present Peripheral pulses: radial pulses present and posterior tibial pulses present GI Inspection: No distended and No Abdominal panniculus present Palpation (GI): Soft to palpation, nontender, no guarding, not rigid and No hepatosplenomegaly present Percussion: Yes normal to percussion Auscultation: normal bowel sounds Rectal Exam - Female: deferred Skin General skin exam: no rashes or lesions noted, turgor normal, skin not dry, no jaundice, No spider nevi and no striae Rashes: no rashes Nails: normal Neuro General: oriented to person, oriented to place and oriented to time Cranial nerves: Yes Equal, round and reactive pupils present and Yes Normal hearing present Speech: No Abnormal speech present Extrem General: Yes normal to inspection, No clubbing, No cyanosis and No edema Psych Appearance: grossly normal and well kempt Mental Status: mental status grossly normal Speech and movement: Normal speech and movement present Affect: normal affect Attitude: cooperative Thought process: Normal thought process present and not confabulating Thought content: Normal thought content present Insight: Limited insight present (Psych) Judgement: Limited judgement present (Psych) Assessment & Plan Assessment & Plan (1) GERD with esophagitis: Code(s): K21.00 - Gastro-esophageal reflux disease with esophagitis, without bleeding Plan: She never heard to schedule the EGD. She is having troubles with recurrent sore throats and hoarse voice. She does not feel this is her GERD, but sinus problems. She has not had survey for SSBE for many years. Her mother 2 mos ago, this was hard for her. She is associated with [facility] and has an apt with them, she brings a med list for me to update, but they left off lamictal. She wanted Cologuard for CRC screening, this was supposed to be discussed with her PCP, but I will try ordering it since she saw him yesterday and it was not addressed. She has no hx of polyps or FHX of CRC. There are no cardiac or respiratory problems. There are no infectious disease problems. Again she has a history of Velázquez's esophagus but has not been surveyed in at least 5 years. ROV 6 mos. EGD Not scheduled or obtained?? BIOPSY (2) History of Velázquez's esophagus: Code(s): Z87.19 - Personal history of other diseases of the digestive system (3) Constipation: Code(s): K59.00 - Constipation, unspecified Orders: Orders EGD with [facility] - GI Use Only 08/15/23 Z87.19 - Personal history of other diseases of the digestive system Medications: Changed From polyethylene glycol 3350 17 grams PO DAILY 238 grams 4RF To polyethylene glycol 3350 17 grams PO DAILY 238 grams 6RF Refilled famotidine 40 mg PO BEDTIME 30 tabs 6RF 30 days docusate sodium 100 mg PO BID 60 caps 6RF pantoprazole 40 mg PO BID 60 tabs 6RF Z87.19 - Personal history of other diseases of the digestive system, K21.00 - Gastro-esophageal reflux disease with esophagitis, without bleeding Coding Level of Care Code Est Pt Level 4 (63327) Diagnoses GERD with esophagitis K21.00 History of Velázquez's esophagus Z87.19 Constipation K59.00
[2023-08-15 11:31] VITALS: BP 115/71; PULSE 95; BMI 28.8
== END 2023-08-15 12:25 | disposition home or self-care (01) ==
PROVIDERS: PCP Family Medicine; Visit Provider Nurse Practitioner
DX: K21.00 Gastro-esophageal reflux disease with esophagitis, without bleeding (principal); Z87.19 Personal history of other diseases of the digestive system; K59.00 Constipation, unspecified
CPT/HCPCS: 99214

== ENCOUNTER → 2023-08-15 11:28 | Outpatient (BNVA) | payer OTHER, SELFPAY | PROVIDERS: PCP Family Medicine; Visit Provider Nurse Practitioner ==